=== PATIENT | female | born 1975 | race Caucasian/White ===

== ENCOUNTER → 2016-09-29 | Outpatient (CLI) | payer OTHER | LOC: BRMIMAGING 16:54 | PROVIDERS: ATTEND Internal Medicine | DX: M54.12 Radiculopathy, cervical region (principal) | CPT/HCPCS: 72052-PO ==

== ENCOUNTER 2018-05-22 06:41 | Day surgery (SDC) | payer OTHER ==
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
[2018-05-22] MEDS ORDERED: LR 1,000 ML IV ONE (06:53)
[2018-05-22] MEDS ORDERED: LIDOCAINE 1% 2 ML INJ ID PRN (06:53)
[2018-05-22] MEDS ORDERED: SILVER NITRATE APPLICATOR 1 APPL TP ONE (07:36)
--- NOTE | 2018-05-22 07:50 | PDANEPAE ---
ANE History of Present Illness dysmenorhea, here for hysteroscopy ANE Past Medical History - Cardiovascular History Hx Hypertension: No Hx Arrhythmias: No Hx Chest Pain: No Hx Coronary Artery / Peripheral Vascular Disease: No Hx CHF / Valvular Disease: No Hx Palpitations: No - Pulmonary History Hx COPD: No Hx Asthma/Reactive Airway Disease: No Hx Recent Upper Respiratory Infection: No Hx Oxygen in Use at Home: No Hx Sleep Apnea: No Sleep Apnea Screening Result - Last Documented: Negative Pulmonary History Comment: bronchiectasis on left lung, can trigger cough if she is laying flat on her back for too long - Neurologic History Hx Cerebrovascular Accident: No Hx Seizures: No Hx Dementia: No - Endocrine History Hx Diabetes: No - Renal History Hx Renal Disorders: Yes Renal History Comment: hx of bladder sling - Liver History Hx Hepatic Disorders: No - Neurological & Psychiatric Hx Hx Neurological and Psychiatric Disorders: Yes Neurological / Psychiatric History Comment: depression- well managed - Cancer History Hx Cancer: No - Congenital Disorder History Hx Congenital Disorders: No - GI History Hx Gastrointestinal Disorders: Yes Gastrointestinal History Comment: chronic constipation uses fiber - Other Health History Other Health History: none - Chronic Pain History Chronic Pain: No - Surgical History Prior Surgeries: bladder sling. lasik 11/2016. bunionectomy bilaterally 2016. oophorectomy and appy 1991. bilateral breast reduction 2008. ANE Review of Systems Review of Systems: - Exercise capacity METS (RN): 5 METS ANE Patient History - Allergies Allergies/Adverse Reactions: No Known Allergies Allergy (Verified 05/16/18 14:53) - Home Medications Home Medications: Herbals/Supplements -Info Only 05/16/18 [Last Taken 05/16/18] - NPO status NPO Status: no food or drink >8 hours NPO Since - Liquids (Date): 05/22/18 NPO Since - Liquids (Time): 04:00 NPO Since - Solids (Date): 05/21/18 NPO Since - Solids (Time): 19:00 - Anes Hx Anes Hx: no prior problems - Smoking Hx Smoking Status: Never smoked - Alcohol Use Alcohol Use: Occasionally - Family Anes Hx Family Anes Hx: none Family Hx Anesthesia Complications: none ANE Labs/Vital Signs - Vital Signs Blood Pressure: 96/72 Heart Rate: 48 Respiratory Rate: 16 O2 Sat (%): 99 Height: 177.8 cm Weight: 72.575 kg ANE Physical Exam - Airway Neck exam: FROM Mallampati Score: Class 2 Mouth exam: normal dental/mouth exam - Pulmonary Pulmonary: no respiratory distress, clear to auscultation - Cardiovascular Cardiovascular: regular rate and rhythym, no murmur, rub, or gallop - ASA Status ASA Status: II ANE Anesthesia Plan Anesthesia Plan: GA w LMA
[2018-05-22] MEDS ORDERED: MIDAZOLAM 2 MG/2 ML VIAL IVP ONE (07:51)
[2018-05-22] MEDS ORDERED: fentaNYL 100 MCG/2 ML INJ ONE ×2 (07:55→09:18)
[2018-05-22] MEDS ORDERED: PROPOFOL 200 MG/20 ML VIAL ONE (07:55)
[2018-05-22] MEDS ORDERED: LIDOCAINE 2% 100 MG/5 ML SYR ONE (08:05)
--- NOTE | 2018-05-22 08:07 | PDHPUP ---
History & Physical Update H&P update statement: This history and physical update is based on an assessment of the patient which was completed after admission or registration (within 24 hours), but prior to the surgery/procedure.
[2018-05-22] MEDS ORDERED: ONDANSETRON 4 MG/2 ML VIAL ONE (08:08)
[2018-05-22] MEDS ORDERED: DEXAMETHASONE 4 MG/ML VIAL ONE ×2 (08:10)
[2018-05-22] MEDS ORDERED: DOXYCYCLINE INJ 100 MG in NS 250 ML IV ONE (09:00)
[2018-05-22] MEDS ORDERED: ACETAMINOPHEN 500 MG TAB PO PRN (09:10)
[2018-05-22] MEDS ORDERED: oxyCODONE IR 5 MG TAB PO PRN (09:10)
[2018-05-22] MEDS ORDERED: PROMETHAZINE HCL 25 MG/ML INJ IVP PRN (09:10)
[2018-05-22] MEDS ORDERED: NALOXONE HCL 0.4 MG/ML INJ IVP PRN (09:10)
[2018-05-22] MEDS ORDERED: HYDROCODONE/APAP 5/325 TAB PO PRN (09:10)
[2018-05-22] MEDS ORDERED: ONDANSETRON 4 MG/2 ML VIAL IVP PRN (09:10)
--- NOTE | 2018-05-22 09:11 | POSTANESTH ---
Post Anesthetic Evaluation Cardiovascular Status: Normal, Stable, Similar to Pre-Op Cond Respiratory Status: Normal, Stable, Similar to Pre-op Cond. Level of Consciousness/Mental Status: Can Participate in Eval, Alert and Oriented Pain Control: Adequate, Prn Tx Ordered Nausea/Vomiting Control: Adequate, Prn Tx Ordered Complications Possibly Related to Anesthesia: None Noted
[2018-05-22] MEDS: fentaNYL 100 MCG/2 ML INJ IVP PRN ×2 (09:20→09:29)
[2018-05-22] MEDS ORDERED: oxyCODONE IR 5 MG TAB ONE (09:50)
--- NOTE | 2018-05-22 09:52 | GOP ---
[f rep st] OPERATIVE REPORT DATE OF OPERATION: 05/22/2018 SURGEON: Alley Dey DO ANESTHESIA: General with LMA. ANESTHESIOLOGIST: Quique Sanders MD. PREOPERATIVE DIAGNOSIS: Endometrial polyp and menorrhagia. POSTOPERATIVE DIAGNOSIS: Endometrial polyp and menorrhagia. PROCEDURE PERFORMED: Hysteroscopy with morcellation of the endometrial tissue, endometrial polyp and an endometrial ablation. FINDINGS: 1. Exam under anesthesia mobile midposition uterus with no adnexal masses. Uterus sounded to 8 cm. 2. Hysteroscopic findings: Thickened endometrium and a suspected endometrial polyp. SPECIMENS: Endometrial curettings and polyp. INDICATIONS: The patient is a 43-year-old, 3, para 2-0-1-2, who was seen for an annual exam in January and complained of very heavy periods and irregular spotting. Pelvic ultrasound was perfor med which showed an endometrial polyp at the fundus and the management options were reviewed with the patient. The patient elected to proceed with a hysteroscopy with morcellation of the endometrial ti ssue and an endometrial ablation. She was made aware that if the pathology is abnormal she will need to undergo a hysterectomy. Risks and benefits have been extensively reviewed with the patient and t he patient was properly consented. DESCRIPTION OF PROCEDURE: Patient was taken to the operating room with intravenous fluids in place. She was given 100 mg of doxycycline intravenously. She was then placed on the operating room table in a dorsal supine position where general anesthesia was obtained. She was then repositioned into th e dorsal lithotomy position with the Yellofin stirrups and prepped and draped in normal sterile fashi on. Exam under anesthesia revealed a mobile, midposition uterus with no adnexal masses. A speculum was then placed in the patient's vagina. An Allis clamp was used to grasp the anterior lip of the ce rvix and the cervix was then dilated to allow for the introduction of an operative hysteroscope. The hysteroscope was then introduced with fluid medium running. A thickened endometrial cavity was note d at the fundus with possible polyp. The morcellator was then introduced and morcellation was perfor med of the endometrial tissue. Following removal of the thickened endometrium and the polyp, no fibr oids were noted and bilateral tubal ostia were visualized. The hysteroscope was then withdrawn and n o masses were noted within the endocervical canal. The Sobeida was then inserted with a cavity lengt h of 4.5 cm. The endometrial ablation was performed after the cavity assessment passed. After compl etion of the endometrial ablation, the Sobeida was then withdrawn and the hysteroscope was reintroduc ed and a diffusely ablated endometrial cavity was noted. The hysteroscope was then withdrawn. The i nstruments were then removed from the patient's vagina. No bleeding was noted. Patient was returned to the dorsal supine position where she was easily awoken from anesthesia. Sponge count was correct . The patient was transported to recovery room in stable condition. /[id number]/MODL
[2018-05-22 11:21] VITALS: BP 102/60
== END 2018-05-22 11:21 | disposition home or self-care (01) ==
LOC: FSGY 06:41
PROVIDERS: ATTEND Obstetrics & Gynecology
DX: N92.0 Excessive and frequent menstruation with regular cycle (principal); N84.1 Polyp of cervix uteri; N93.8 Other specified abnormal uterine and vaginal bleeding
CPT/HCPCS: 58563; C1782; J1100; J2001; J2250; J2405; J2704; J3010